=== PATIENT | male | born 1945 | race Caucasian/White ===

== ENCOUNTER 2019-01-27 06:14 | Observation (INO) | payer MEDICARE ==
[2019-01-23 11:31] LABS: BASOPHILS % 1.2 % (0.0-1.0); EOSINOPHILS # (AUTO) 0.3 (0.0-0.4); EOSINOPHILS % 8.1 % (0.0-6.0); HEMATOCRIT 43.3 % (38.2-49.6); HEMOGLOBIN 13.9 g/dL (14.0-18.0); MEAN CORPUSCULAR HEMOGLOBIN 28.9 pg (28-32); MEAN CORPUSCULAR HGB CONC 32.1 g/dL (31-35); MONOCYTES # (AUTO) 0.4 (0.2-0.8); MONOCYTES % 12.7 % (4.4-11.3); NEUTROPHILS # (AUTO) 1.7 (2.1-6.9); NEUTROPHILS % 49.7 % (38.7-80.0); PLATELET COUNT 199 x10e3/uL (140-360); RED BLOOD COUNT 4.81 x10e6/uL (4.3-5.7); RED CELL DISTRIBUTION WIDTH 12.5 % (11.7-14.4)
--- NOTE | 2019-01-23 12:34 | Diagnostic Imaging Report ---
Chest, 2 views, 01/23/2019. History: Preop, knee surgery. Comparison: None available. Findings: The cardiomediastinal silhouette and pulmonary vasculature are within normal limits. The lungs are clear without evidence of consolidation or pleural effusion. Multiple old left rib fractures are present. Degenerative changes are noted throughout the thoracic spine There are no acute osseous or soft tissue abnormalities. Impression: No acute cardiopulmonary abnormality. Signed by: Tyler Perrin on 01/23/2019 12:30 PM
[~2019-01-27] VITALS: Ht 182.9 cm; Wt 90.7 kg
[~2019-01-27 06:14] MED LIST: BENAZEPRIL HCL40 MG PO; CELEBREX100 MG PO; VITAMIN C1000 MG PO
--- OUTSIDE RECORDS SUMMARY | 2019-01-27 06:34 | XMS REPORT ---
Author Author [facility] Address Unknown Phone Unavailable Care Team Providers Care Seating Captain Name Role Phone KRISS ARMSTRONG Unavailable Unavailable Problems This patient has no known problems. Allergies, Adverse Reactions, Alerts This patient has no known allergies or adverse reactions. Medications This patient has no known medications. Results Test Description Test Time Test Comments Text Results Atomic Results Result Comments CHEST 2 VIEWS 2019-01-23 12:30:00 [place] [address] Patient Name: BRUNO MAGALLANES MR #: [id number] : 1945 Age/Sex: 73/M Req #: [id number] Adm Physician: Ordered by: KRISS ARMSTRONG MD Report #: [id number] Location: OR Room/Bed: Procedure: [id number] DX/CHEST 2 VIEWS Exam Date: 01/23/19 Exam Time: 1139 REPORT STATUS: Signed Chest, 2 views, 01/23/2019. History: Preop, knee surgery. Comparison: None available. Findings: The cardiomediastinal silhouette and pulmonary vasculature are within normal limits. The lungs are clear without evidence of consolidation or pleural effusion. Multiple old left rib fractures are present. Degenerative changes are noted throughout the thoracic spine There are no acute osseous or soft tissue abnormalities. Impression: No acute cardiopulmonary abnormality. Signed by: Mir Perrin on 01/23/2019 12:30 PM Dictated By: MIR PERRIN MD 1230 Transcribed By: AMANDA on 01/23/19 1230 COPY TO: KRISS ARMSTRONG MD
[2019-01-27] MEDS ORDERED: DEXAMETHASONE SOD PHOS 10 MG/1 ML VIAL ONE (06:41)
[2019-01-27] MEDS ORDERED: GABAPENTIN 300 MG CAP ONE (06:41)
[2019-01-27] MEDS ORDERED: CELECOXIB 200 MG CAP ONE (06:41)
[2019-01-27] MEDS ORDERED: CEFAZOLIN SOD 1 GM/NS 50ML 100 ML IV ONE (06:42)
[2019-01-27] MEDS ORDERED: ROPIVACAINE 246.25 MG, EPINEPHRINE HCL 1:1000 1ML 0.5 MG, CLONIDINE HCL 0.08 MG, KETORO... INJ ONE ×5 (07:30)
[2019-01-27] MEDS ORDERED: TRANEXAMIC ACID 1,000 MG/10 ML ML ONE ×2 (08:08→09:17)
[2019-01-27] MEDS ORDERED: VANCOMYCIN HCL 1,000 MG ONE (08:08)
[2019-01-27] MEDS ORDERED: BACITRACIN 50,000 UNIT VIAL ONE (08:09)
[2019-01-27] MEDS ORDERED: SODIUM CHLORIDE 0.9% 500ML 500 ML ONE (08:22)
[2019-01-27] MEDS ORDERED: SODIUM CHLORIDE 0.9% 1000ML 1,000 ML IV SCH (10:20)
[2019-01-27] MEDS ORDERED: PROMETHAZINE HCL (IM) 25 MG/ML VIAL INJ PRN (10:30)
[2019-01-27] MEDS ORDERED: KETOROLAC TROMETHAMINE 30 MG/ML VIAL IV PRN (10:30)
[2019-01-27] MEDS ORDERED: HYDROCODONE/APAP 7.5MG-325MG 1 EA TAB PO PRN (10:30)
[2019-01-27] MEDS ORDERED: DIPHENHYDRAMINE HCL INJ 50 MG/ML VIAL IM/IV PRN (10:30)
[2019-01-27] MEDS ORDERED: HYDROCODONE/APAP 5MG-325MG TAB PO PRN (10:30)
[2019-01-27] MEDS ORDERED: ACETAMINOPHEN 650 MG SUPP PR PRN (10:30)
[2019-01-27] MEDS ORDERED: ONDANSETRON HCL INJ 2MG/ML 2ML 2 MG/ML VIAL IV PRN (10:30)
[2019-01-27] MEDS ORDERED: DOCUSATE SODIUM 100 MG CAP PO PRN (10:30)
[2019-01-27] MEDS ORDERED: ZOLPIDEM TARTRATE 5 MG TAB PO PRN (10:30)
--- NOTE | 2019-01-27 11:06 | Diagnostic Imaging Report ---
Knee radiograph, 2 views. History: Postoperative Findings: Postoperative findings of left knee arthroplasty with prosthetic components in anatomic alignment. No acute fracture. Overlying subcutaneous emphysema and surgical skin jason are present. Small joint effusion. IMPRESSION: Status post left total knee replacement in anatomic position. Signed by: Tulio Rojas MD on 01/27/2019 11:03 AM
[2019-01-27 11:30] VITALS: BP 151/71
--- NOTE | 2019-01-27 11:30 | NUR ---
REC'D PT FROM RECOVERY. PATIENT ON ROOM AIR WITH NO S/S OF DISTRESS. IV TO THE RIGHT HAND PATENT AND INTACT. ASSISTED TRANSFER FROM RECOVERY BED TO ROOM BED. BED IN LOWEST POSITION, SIDE RAILS UP X2, AND CALL WHITTEN WITHIN REACH.
[2019-01-27 11:39] VITALS: BP 151/71
[2019-01-27] MEDS: ACETAMINOPHEN 1000 MG/100 ML IV SCH ×2 (12:00→17:23)
[2019-01-27] MEDS: CEFAZOLIN SOD 1 GM/NS 50ML 50 ML IV SCH ×2 (14:40→23:00)
[2019-01-27 15:39] VITALS: BP 119/57
--- NOTE | 2019-01-27 16:31 | Consultation ---
DATE OF CONSULTATION: 01/27/2019 REASON FOR CONSULTATION: Medical management. HISTORY OF PRESENT ILLNESS: This is a 73-year-old white man, who underwent successful left total knee replacement today. The patient has a history of end-stage left knee degenerative joint disease. The patient states that the worsening arthritic left knee pain was affecting his quality of life. In fact, it was affecting his ability to perform his activities of daily living. The patient voices no complaints. The patient's pain is well controlled. REVIEW OF SYSTEMS: GENERAL: Weight is stable. No fever or chills. HEENT: No headaches. No visual changes. CARDIOVASCULAR/RESPIRATORY: No chest pain. No shortness of breath or cough. GI: No nausea, vomiting, diarrhea, or constipation. : No UTI. NEUROMUSCULAR: Arthritic pain in left knee. ALLERGIES: NO KNOWN DRUG ALLERGIES. MEDICATIONS: 1. Vitamin C 1000 mg daily. 2. Benazepril 40 mg daily. FAMILY HISTORY: Father at age 93, but he did have hypertension. His mother of cancer. SOCIAL HISTORY: This man is , lives with his . 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 The patient states he worked up until 2016. 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 Drinks alcohol socially in the form of beer. The patient states he does dip tobacco. Denies any tobacco smoking. PAST SURGICAL HISTORY: 1. Left total hip replacement in 2013. 2. Left total knee replacement today. PAST MEDICAL HISTORY: 1. Hypertension. 2. Tobacco use (dips tobacco). 3. Mechanical fall in December 2016 that resulted in multiple left-sided rib fractures and left shoulder. PHYSICAL EXAMINATION: GENERAL: He is awake, alert, fluent, very pleasant, cooperative with exam. VITAL SIGNS: Height is 6 feet. Weight is 200 pounds. BMI is 27. Blood pressure is 150/70, pulse 78, respiratory rate 16, oxygen saturation 95% on room air, and temperature 95.5. INTEGUMENT: Skin is warm and dry. No pallor, jaundice, or diaphoresis. HEENT: Anicteric sclerae. Moist mucous membranes. NECK: Supple. CARDIOVASCULAR: Regular rate and rhythm. LUNGS: No rales, no rhonchi, and no wheezes. ABDOMEN: Benign. EXTREMITIES: No edema or deformity. The patient's left knee is currently dressed. The patient has sequential compression devices in his bilateral lower legs. NEUROLOGIC: Intact. IMPRESSION: 1. Status post left total knee replacement. 2. Hypertensive heart disease. PLAN: 1. Blood pressure monitoring and control. 2. Mobilize therapy. 3. Pain control. 4. Incentive spirometer usage to prevent atelectasis. 5. Deep venous thrombosis prophylaxis with sequential compression devices and high-dose aspirin as ordered by the orthopedic surgeon. I spent 30 minutes in the care of this patient. I would like to thank Dr. Jeff Guy for this generous consult. MD MARIA MonaeO/MODL /[id number] cc: Jeff Guy MD MTDD
[2019-01-27] MEDS: ASPIRIN 325 MG TAB PO SCH (17:23)
[2019-01-27] MEDS: CELECOXIB 200 MG CAP PO SCH (17:23)
--- NOTE | 2019-01-27 18:19 | NUR ---
PT IS RESTING IN BED WITH EYES OPENED AND NO S/S OF DISTRESS. INCENTIVE SPIROMETER AT THE BEDSIDE AND INSTRUCTED ON HOW TO USE. SIDE RAILS UP X2, BED IN LOWEST POSITION, AND CALL WHITTEN WITHIN REACH.
[2019-01-27] MEDS ORDERED: SEVOFLURANE INHAL SOLN 250 ML PEN BTL ONE (18:27)
[2019-01-27] MEDS ORDERED: PROPOFOL IV EMULSION 10 MG/ML 20 ML VIAL ONE (18:27)
[2019-01-27] MEDS ORDERED: MIDAZOLAM HCL 2 MG/2 ML VIAL ONE (18:27)
[2019-01-27] MEDS ORDERED: FENTANYL CITRATE/PF 100MCG/2 ML INJ ONE (18:27)
[2019-01-27] MEDS ORDERED: LIDOCAINE HCL 2% LOCAL INJ 5 ML SDV VIAL INJ ONE (18:27)
[2019-01-27] MEDS ORDERED: ONDANSETRON HCL INJ 2MG/ML 2ML 2 MG/ML VIAL ONE (18:27)
[2019-01-27] MEDS ORDERED: ACETAMINOPHEN 1000 MG/100 ML IV ONE (18:27)
[2019-01-27] MEDS ORDERED: EPINEPHRINE HCL 1:1000 1ML 1 MG/ML AMP ONE (18:58)
[2019-01-27] MEDS ORDERED: BUPIVACAINE HCL 0.5% INJ 30 ML VIAL INJ ONE (18:58)
[2019-01-27 19:42] VITALS: BP 119/57
--- NOTE | 2019-01-27 19:54 | NUR ---
RECEIVED PT IN BED AOX3 .RESPIRATIONS ARE EVEN AND UNLABORED .LEFT KNEE WITH RODOLFO WRAP .AND ICE PACKS ..PT DENIES PAIN .CALL LIGHT WITH IN REACH .CONTINUE TO MONITOR
[2019-01-27 20:00] VITALS: BP 121/74
[2019-01-28] VITALS: BP 127/69
[2019-01-28 04:00] VITALS: BP 118/72
[2019-01-28 05:36] LABS: BASOPHILS % 0.1 % (0.0-1.0); EOSINOPHILS % 0.2 % (0.0-6.0); HEMOGLOBIN 11.9 g/dL (14.0-18.0); LYMPHOCYTES # (AUTO) 0.7 (1.0-3.2); MEAN CORPUSCULAR HEMOGLOBIN 29.2 pg (28-32); MEAN CORPUSCULAR HGB CONC 33.1 g/dL (31-35); MEAN CORPUSCULAR VOLUME 88.2 fL (81-99); MONOCYTES # (AUTO) 0.8 (0.2-0.8); MONOCYTES % 10.1 % (4.4-11.3); NEUTROPHILS # (AUTO) 6.5 (2.1-6.9); NEUTROPHILS % 80.1 % (38.7-80.0); PLATELET COUNT 163 x10e3/uL (140-360); RED BLOOD COUNT 4.08 x10e6/uL (4.3-5.7); RED CELL DISTRIBUTION WIDTH 12.6 % (11.7-14.4)
--- NOTE | 2019-01-28 05:48 | NUR ---
PT RESTED DURING THE NIGHT .NO ACUTE DISTRESS NOTED .CALL LIGHT WITH IN REACH .CONTINUE TO MONITOR
[2019-01-28 05:53] LABS: ANION GAP 12.4 mmol/L (8-16); BLOOD UREA NITROGEN 19 mg/dL (7-26); BUN/CREATININE RATIO 22 (6-25); CALCIUM 8.7 mg/dL (8.4-10.2); CARBON DIOXIDE 25 mmol/L (22-29); CHLORIDE 103 mmol/L (98-107); CREATININE, SERUM 0.85 mg/dL (0.72-1.25); EST GLOMERULAR FILTRATION RATE > 60 ML/MIN (60-); GLUCOSE 123 mg/dL (74-118); POTASSIUM 4.4 mmol/L (3.5-5.1); SODIUM 136 mmol/L (136-145)
[2019-01-28] MEDS: ACETAMINOPHEN 1000 MG/100 ML IV SCH ×2 (06:25)
[2019-01-28] MEDS: CEFAZOLIN SOD 1 GM/NS 50ML 50 ML IV SCH (07:00)
--- NOTE | 2019-01-28 07:00 | NUR ---
received am report from nurse, morning rounds done. pt is alert, no s/s of distress. pt has no complaints at this time. there are orders for CPM but the machine is not in the room. Will set up CPM for patient. call light is within reach, instructed pt to call for help
--- NOTE | 2019-01-28 07:36 | NUR ---
BEDSIDE REPORT GIVEN TO THE ONCOMING NURSE
[2019-01-28 08:25] VITALS: BP 123/73
[2019-01-28] MEDS: ASPIRIN 325 MG TAB PO SCH (08:56)
[2019-01-28] MEDS: CELECOXIB 200 MG CAP PO SCH (08:56)
[2019-01-28 10:06] VITALS: BP 123/73
[2019-01-28] MEDS ORDERED: ACETAMINOPHEN 1000 MG/100 ML IV PRN (10:30)
--- NOTE | 2019-01-28 12:00 | Operative Report ---
DATE OF PROCEDURE: 01/27/2019 SURGEON: Jeff Guy MD DIRECTOR OF WEB MARKETING: Aris Maldonado, certified PA. PREOPERATIVE DIAGNOSIS: Osteoarthritis of left knee. POSTOPERATIVE DIAGNOSIS: Osteoarthritis of left knee. PROCEDURE: Left total knee arthroplasty. INDICATIONS: The patient is an active 73-year-old gentleman, who has end-stage arthritis of his left knee. He has failed conservative management and would like to proceed with a left total knee replacement. The risks and benefits of the procedure have been explained in detail. He states he understands and wishes to proceed. PROCEDURE IN DETAIL: The patient was brought to the operating room and placed under general anesthetic. He received prophylactic antibiotics, a regional block and tranexamic acid in the holding area. His left lower extremity was prepped and draped in a sterile manner. A preoperative time-out was performed. The left lower extremity was exsanguinated and a proximal tourniquet was inflated to 300 mmHg. An anterior approach with a medial parapatellar arthrotomy was performed. Clear synovial fluid was removed from the joint. Soft tissue releases were performed to bring the knee up into flexion with the patella everted. The anterior cruciate ligament was excised. A [employer] knee system was used throughout the case. An extramedullary cutting guide was used to resect the proximal tibia. Marginal osteophytes and meniscal remnants had been removed. The tibial base plate was a size #H. The central fin punch was drilled and impacted. Attention was directed towards the distal femur. An intramedullary cutting guide was used to resect the distal femur in 6 degrees of valgus and external rotation referencing off a combination of landmarks including Whitesides line, the epicondylar axis and the posterior condyles. The femoral component was a size #9. The anterior and posterior cuts were made. Trial reductions were performed. An 11 mm medial congruent insert provided appropriate soft tissue balancing and full extension and 90 degrees of flexion. The patella was resurfaced with a 38 mm x 9.5 mm patellar button. The thickness was checked before and after and was right around 25 mm. Patellar tracking was noted to be concentric. The trial implants were all removed. The knee was thoroughly irrigated with a shower tip pulsatile lavage. All bone cuts have been irrigated with a spray mixture of diluted polymyxin and vancomycin spray. A 100 mL premixed pericapsular KG injection was placed into the surrounding soft tissue. The components were cemented into place using a single mix of Palacos cement. Care was taken to remove all extravasated cement. The wound was further irrigated while the cement cured. The arthrotomy was then closed with interrupted #1 Ethibond stitches. The knee was put through flexion and extension to ensure a secure closure. The skin was closed with subcuticular Vicryl and jason. A sterile Aquacel bandage was applied. The patient was extubated and transported to the recovery room in stable condition. Blood loss was minimal. All needle and sponge counts were correct. Jeff Guy MD DR/SEVERO /[id number]
[2019-01-28] MEDS ORDERED: ASPIRIN81 MG PO (12:25)
--- NOTE | 2019-01-28 12:47 | NUR ---
PATIENT DME AND HOME HEALTH COMPANIES PRE-ARRANGED BY DR. ARMSTRONG'S OFFICE. PATIENT WITH HOME HEALTH AND DME CONTACT INFORMATION. PATIENT AWARE TO CALL CM IF ANY PROBLEMS OCCUR WITHIN 3 DAYS POST- DISCHARGE. HOME HEALTH EXPLAINED IN DEPTH WITH SERVICES PROVIDED. PATIENT VERBALLY UNDERSTOOD. THE FOLLOWING HOME HEALTH AND DME COMPANY VERIFIED PATIENT IS ON SERVICE WITH THEM: [employer] (P) [phone] (F) [phone] EQUIPMENT AT BEDSIDE. [facility] (P) [phone] (F) [phone] PATY, LIAISON FOR [facility] CONFIRMED START DATE 01/[address] ARMSTRONG. PATIENT AWARE. [facility] SAW PATIENT AT BEDSIDE AND GAVE CONTACT INFORMATION
== END 2019-01-28 13:18 | disposition home health service (06) ==
LOC: OR 06:14 → MED/SURG 10:46
PROVIDERS: ADMIT Specialist; ATTEND Specialist
DX: M17.0 Bilateral primary osteoarthritis of knee (principal); I10 Essential (primary) hypertension; Z96.642 Presence of left artificial hip joint; F17.220 Nicotine dependence, chewing tobacco, uncomplicated
CPT/HCPCS: 27447; 36415 ×2; 71046; 73560; 80048; 85025 ×2; 86850; 86900; 86920; 93005; 97116 ×2; 97161; C1713; C1776 ×3; G0378 ×2; J0131 ×2; J0171; J0690 ×2; J1100; J1885; J2001; J2250; J2405; J2704; J2795; J3010; J3370; J7030; J7040

== ENCOUNTER → 2021-07-26 | Day surgery (SDC) | payer MEDICARE ==
[2021-07-25 11:00] LABS: BASOPHILS # (AUTO) 0.1 (0.0-0.1); BASOPHILS % 0.9 % (0.0-1.0); EOSINOPHILS # (AUTO) 0.2 (0.0-0.4); EOSINOPHILS % 2.8 % (0.0-6.0); HEMATOCRIT 44.2 % (38.2-49.6); HEMOGLOBIN 13.7 g/dL (14.0-18.0); LYMPHOCYTES # (AUTO) 1.2 (1.0-3.2); LYMPHOCYTES % 17.8 % (18.0-39.1); MEAN CORPUSCULAR HEMOGLOBIN 28.4 pg (28-32); MEAN CORPUSCULAR VOLUME 91.5 fL (81-99); MONOCYTES # (AUTO) 0.8 (0.2-0.8); MONOCYTES % 11.7 % (4.4-11.3); NEUTROPHILS # (AUTO) 4.5 (2.1-6.9); NEUTROPHILS % 66.5 % (38.7-80.0); PLATELET COUNT 228 x10e3/uL (140-360); RED BLOOD COUNT 4.83 x10e6/uL (4.3-5.7); RED CELL DISTRIBUTION WIDTH 12.5 % (11.7-14.4)
[~2021-07-26] MED LIST changes: +ASPIRIN81 MG PO; +BUPIVACAINE HCL 0.5% INJ 30 ML VIAL INJ ONE; +CALCIUM600 MG PO; +DEXAMETHASONE SOD PHOS INJ 4 MG/ML SDV ONE; +EQUATE ARTHRITIS PO; +FENTANYL CITRATE/PF 100MCG/2 ML INJ ONE; +HYDRALAZINE HCL 20 MG/ML VIAL ONE; +IBUPROFEN200 MG PO; +LIDOCAINE HCL 2% LOCAL INJ 5 ML SDV VIAL INJ ONE; +ONDANSETRON HCL INJ 2MG/ML 2ML 2 MG/ML VIAL ONE; +OSTEO BI-FLEX1 EAC2 PO; +POVIDONE IODINE 0.05% 0.05 % ML PO ONE; +PROPOFOL IV EMULSION 10 MG/ML 20 ML VIAL ONE; +SEVOFLURANE INHAL SOLN 250 ML PEN BTL ONE; +SODIUM CHLORIDE 0.9% 50ML 100 ML ONE
[2021-07-26 16:20] VITALS: BP 166/89
== END | disposition home or self-care (01) ==
LOC: OR 12:11
PROVIDERS: ATTEND Specialist
DX: S52.571A Other intraarticular fracture of lower end of right radius, initial encounter for closed fracture (principal); M19.90 Unspecified osteoarthritis, unspecified site; I49.1 Atrial premature depolarization; J44.9 Chronic obstructive pulmonary disease, unspecified; I10 Essential (primary) hypertension; W18.39XA Other fall on same level, initial encounter; Y93.79 Activity, other specified sports and athletics; Y99.8 Other external cause status; Z01.810 Encounter for preprocedural cardiovascular examination; Z01.812 Encounter for preprocedural laboratory examination; Z01.818 Encounter for other preprocedural examination; Z20.822 Contact with and (suspected) exposure to COVID-19; Z79.899 Other long term (current) drug therapy
CPT/HCPCS: 25609; 36415; 71046; 85025; 93005; C1713 ×2; J0360; J0690; J1100; J2001; J2405; J2704; J3010; U0002; 76000

== ENCOUNTER 2021-09-28 14:00 | Outpatient (RCR) | payer MEDICARE ==
[~2021-09-28 14:00] MED LIST changes: -BUPIVACAINE HCL 0.5% INJ 30 ML VIAL INJ ONE; -DEXAMETHASONE SOD PHOS INJ 4 MG/ML SDV ONE; -FENTANYL CITRATE/PF 100MCG/2 ML INJ ONE; -HYDRALAZINE HCL 20 MG/ML VIAL ONE; -LIDOCAINE HCL 2% LOCAL INJ 5 ML SDV VIAL INJ ONE; -ONDANSETRON HCL INJ 2MG/ML 2ML 2 MG/ML VIAL ONE; -POVIDONE IODINE 0.05% 0.05 % ML PO ONE; -PROPOFOL IV EMULSION 10 MG/ML 20 ML VIAL ONE; -SEVOFLURANE INHAL SOLN 250 ML PEN BTL ONE; -SODIUM CHLORIDE 0.9% 50ML 100 ML ONE
== END 2021-09-29 ==
LOC: OT 14:00
PROVIDERS: ATTEND Specialist
DX: S52.571D Other intraarticular fracture of lower end of right radius, subsequent encounter for closed fracture with routine healing (principal); M25.531 Pain in right wrist; M25.631 Stiffness of right wrist, not elsewhere classified; R53.1 Weakness
CPT/HCPCS: 97022; 97110 ×2; 97165; G0283

== ENCOUNTER 2021-10-19 13:51 | Outpatient (RCR) | payer MEDICARE | END 2021-10-29 | LOC: OT 13:51 | PROVIDERS: ATTEND Specialist | DX: S52.591A Other fractures of lower end of right radius, initial encounter for closed fracture (principal) ==